=== PATIENT | female | born 1955 | race Caucasian/White ===

== ENCOUNTER → 2016-09-16 | Outpatient (CLI) | payer MEDICARE, MEDICAID ==
[~2016-09-16] MED LIST: ALDACTONE50 MG PO; AMBIEN10 MG PO; BUMEX1 MG PO; BUSPIRONE HCL15 MG PO; CELEBREX200 MG PO; CHANTIX1 MG PO; COUMADIN 4MG **4 MG PO; CYMBALTA60 MG PO; DESYREL100 MG PO; DESYREL50 MG PO; DILAUDID 2MG(HYD2 MG PO; FEOSOL325 MG PO; GLUCOPHAGE500 MG PO; IMDUR30 MG PO; LIPITOR10 M1 PO; LOVENOX 4040 MG/0.4 SUB-Q; NORCO 5-325 MG1 TAB PO; REGLAN10 MG PO; RYTHMOL SR (SU225 MG PO; SKELAXIN800 MG PO; STOOL SOFT-STI1 EACH PO; SUPER OMEGA-31000 MG PO; SYMBICORT 16010.2 GM INH; THERAGRAN-M1 TAB PO; VITAMIN D-32000 UNIT PO; XANAX0.25 MG; XANAX0.25 MG PO
[2016-09-16 16:01] LABS: ALBUMIN 3.7 gm/dL (3.5-5.0); ANION GAP 9.7 (10.0-19.0); BLOOD UREA NITROGEN 13 mg/dL (6-24); CHLORIDE 99 mMol/L (96-110); CO2 31 mMol/L (22-32); CREATININE 0.7 mg/dL (0.5-1.1); ESTIMATED GFR (MDRD EQUATION) > 60; PHOSPHORUS 3.2 mg/dL (2.5-4.9); POTASSIUM 3.7 mMol/L (3.7-5.1); SODIUM 136 mMol/L (135-145)
== END ==
LOC: LCNC 15:47
PROVIDERS: Internal Medicine Interventional Cardiology
DX: Z95.2 Presence of prosthetic heart valve (principal); R60.9 Edema, unspecified

== ENCOUNTER → 2016-11-05 | Outpatient (CLI) | payer MEDICARE, MEDICAID ==
[2016-11-05 15:30] LABS: ALBUMIN 3.6 gm/dL (3.5-5.0); ANION GAP 9.4 (10.0-19.0); BLOOD UREA NITROGEN 10 mg/dL (6-24); CALCIUM 8.8 mg/dL (8.5-10.5); CHLORIDE 102 mMol/L (96-110); CO2 29 mMol/L (22-32); CREATININE 0.7 mg/dL (0.5-1.1); ESTIMATED GFR (MDRD EQUATION) > 60; PHOSPHORUS 3.5 mg/dL (2.5-4.9); POTASSIUM 4.4 mMol/L (3.7-5.1); SODIUM 136 mMol/L (135-145)
== END | disposition disaster alternative care site (69) ==
LOC: LCNC 15:18
PROVIDERS: Internal Medicine Interventional Cardiology
DX: I25.111 Atherosclerotic heart disease of native coronary artery with angina pectoris with documented spasm (principal)

== ENCOUNTER → 2017-02-11 | Outpatient (CLI) | payer MEDICARE, MEDICAID | END | disposition disaster alternative care site (69) | LOC: GLAB 12:25 | DX: E04.2 Nontoxic multinodular goiter (principal) ==